=== PATIENT | female | born 1950 | race Caucasian/White ===

== ENCOUNTER 2023-09-16 13:46 | Inpatient (IN) | payer MEDICARE, OTHER, SELFPAY ==
[2023-09-16] VITALS (29 sets, daily range): BP systolic 129–192; BP diastolic 63–97; PULSE 28–95; RESP 15–20; TEMP 36.7; O2SAT 90–100; BMI 29.0
--- NOTE | ~2023-09-16 | XR_ITS ---
EXAMINATION: XR chest 1V portable DATE: 09/16/2023 17:16 INDICATION: Syncope. TECHNIQUE: A single frontal view of the chest was obtained. COMPARISON: CT abdomen and pelvis 12/10/2017 FINDINGS: There are chronic reticular opacities in the lower lung zones. There is no pneumonia, pleur al effusion, or pneumothorax. The heart size is normal. There is a moderate-sized hiatal hernia. IMPRESSION: 1. Mild chronic interstitial lung disease. 2. Moderate-sized hiatal hernia. Reviewed, dictated and finalized at location A. D DONOR UNIT ASSISTANT
--- NOTE | ~2023-09-16 | CT_ITS ---
EXAMINATION: CT cervical spine wo con DATE: 09/16/2023 16:43 INDICATION: Syncope. Fall. TECHNIQUE: Computed tomography (CT) of the cervical spine was performed without intravenous contrast. Automated exposure control and iterative reconstruction technique were employed. The dose-length pro duct was 443.11 mGy-cm. COMPARISON: None FINDINGS: There is a stent in the left carotid artery. There is 7 degrees levocurvature of cervical s pine. Vertebral body heights are normal. There is mildly decreased disc height at C4-C5, moderately d ecreased disc height at C5-C6, and severely decreased disc height at C6-C7. The following disc levels are specifically discussed: C2-C3: There is mild left uncovertebral joint osteoarthritis. There is mild bilateral facet joint ost eoarthritis. There is no neural foraminal stenosis. There is no central canal stenosis. C3-C4: There is mild bilateral uncovertebral joint osteoarthritis. There is mild left facet joint ost eoarthritis. There is no neural foraminal stenosis. There is no central canal stenosis. C4-C5: There is mild right uncovertebral joint osteoarthritis. There is mild bilateral facet joint os teoarthritis. There is no neural foraminal stenosis. There is no central canal stenosis. C5-C6: There is moderate right and severe left uncovertebral joint osteoarthritis. There is moderate right facet joint osteoarthritis. There is mild right and moderate left neural foraminal stenosis. Th ere is mild central canal stenosis. C6-C7: There is mild right and severe left uncovertebral joint osteoarthritis. There is severe right and moderate left facet joint osteoarthritis. There is mild left neural foraminal stenosis. There is mild central canal stenosis. C7-T1: There is no uncovertebral joint osteoarthritis. There is severe right and mild left facet join t osteoarthritis. There is no neural foraminal stenosis. There is no central canal stenosis. IMPRESSION: 1. No fracture. 2. Severe cervical spondylosis. Reviewed, dictated and finalized at location A. STANT FRONT OFFICE MANAGER
--- NOTE | ~2023-09-16 | CT_ITS ---
EXAMINATION: CT brain wo con DATE: 09/16/2023 16:43 INDICATION: Syncope and collapse. TECHNIQUE: Computed tomography (CT) of the head was performed without intravenous contrast. The mA wa s adjusted according to patient size. Iterative reconstruction technique was employed. The dose-lengt h product was 756.67 mGy-cm. COMPARISON: None FINDINGS: There are old infarcts in the left basal ganglia. There is an old infarct involving left pa rietal occipital region. There are scattered areas of low attenuation in the cerebral white matter. T here is no intracranial hemorrhage, acute infarction, or abnormal intracranial mass lesion. There is ex vacuo dilatation of left lateral ventricle. There are likely changes of ocular lens replacement josue rgeries. There is mild mucosal thickening in the paranasal sinuses. The mastoid air cells are normal. IMPRESSION: 1. 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 2. Extensive nonspecific cerebral white matter disease, which likely represents chronic small vessel ischemic disease. Reviewed, dictated and finalized at location A. ERY DIRECTOR IMPRESSION: 1. Old infarcts involving the left basal ganglia and left parietal occipital re gion. 2. Extensive nonspecific cerebral white matter disease, which likely represents chronic small vessel ischemic disease.
--- NOTE | ~2023-09-16 | XR_ITS ---
EXAMINATION: XR chest 1V portable DATE: 09/17/2023 14:48 INDICATION: Pacemaker insertion TECHNIQUE: frontal view of the chest was obtained. COMPARISON: Chest radiograph dated 09/16/2023 FINDINGS: Mild streaky left basilar atelectasis. No other airspace opacities, pulmonary edema, pleural effusion or pneumothorax. Heart size is normal. Lucent gas within a moderate-sized retrocardiac hiatal hernia . Dual lead pacemaker seen with leads projecting over the expected locations of the right atrium and right ventricle. IMPRESSION: 1. Mild left basilar atelectasis. No other acute cardiopulmonary disease. 2. Moderate-sized hiatal hernia. Reviewed, dictated and finalized at location B. PRESSER
--- NOTE | ~2023-09-16 | XR_ITS ---
EXAMINATION: XR chest 2V DATE: 09/18/2023 11:43 INDICATION: Pacer placement. TECHNIQUE: Frontal and lateral views of the chest were obtained. COMPARISON: Chest single view 09/17/2023 FINDINGS: There is mild atelectasis at the lung bases. No pleural effusion or pneumothorax. The heart size is normal. There is a left chest wall pacer with leads in the right atrium and right ventricle. There is mild chronic anterior wedging of multiple vertebral bodies. IMPRESSION: 1. Mild atelectasis at the lung bases. Reviewed, dictated and finalized at location A. ACE UTILITY OPERATOR
--- NOTE | 2023-09-16 13:50 | ECG_ITS ---
Measurements Intervals [place] Rate: 72 P: 32 AK: 171 QRS: -18 QRSD: 88 T: 32 QT: 383 QTc: 421 Interpretive Statements SINUS RHYTHM NONSPECIFIC ST-T WAVE ABNORMALITY- ANTEROLAT/HIGH LAT LEADS BASELINE ARTIFACT- I, III, AVR, V3-V4 BORDERLINE ECG COMPARED TO ECG 04/06/2019 10:02:01 [address] NOW PRESENT ST-T WAVE ABNORMALITY NOW PRESENT Electronically Signed On 09-17-2023 6:33:31 SCHOLARSHIP COUNSELOR by Hoang Workman D.O.
[2023-09-16 14:33] LABS: Glucose Point of Care 101 mg/dl (65-105)
[2023-09-16 14:35] LABS: Basophils Absolute Auto 0.1 K/mm3 (0.0-0.1); Basophils Percent Auto 0.6 % (0.2-1.2); Eosinophils Percent Auto 0.2 % (0-4.4); Hematocrit 47.6 % (37.0-47.0); Hemoglobin 15.1 g/dL (12.0-15.0); Immature Granulocyte Absolute 0.03 K/mm3 (0.00-0.031); Immature Granulocyte Percent A 0.4 % (0-0.5); Lymphocytes Absolute Auto 0.68 K/mm3 (0.9-3.2); Lymphocytes Percent Auto 8.3 % (18.3-44.2); Mean Corpuscular HGB Conc 31.7 g/dl (32-36); Mean Corpuscular Hemoglobin 27.8 pg (26-34); Mean Corpuscular Volume 87.7 fl (80-100); Monocytes Absolute Auto 0.2 K/mm3 (0.1-0.6); Monocytes Percent Auto 2.8 % (2.6-8.5); Neutrophils Absolute Auto 7.2 K/mm3 (1.3-6.7); Neutrophils Percent Auto 87.7 % (45.5-73.1); Platelet Count Result 195 k/mm3 (150-375); Red Blood Count 5.43 M/mm3 (4.2-5.4); Red Cell Distribution Width 14.5 % (11.5-14.5); White Blood Count 8.2 K/mm3 (4.5-10.0)
[2023-09-16 14:47] LABS: Alanine Aminotransferase 13 U/L (6-35); Albumin Level 4.3 g/dL (3.5-5.1); Alkaline Phosphatase 97 U/L (38-126); Anion Gap 4 mmol/L (8-16); Aspartate Amino Transferase 21 U/L (14-36); Bilirubin,Total 0.6 mg/dL (0.2-1.3); Blood Urea Nitrogen 17 mg/dL (7-17); Calcium 9.5 mg/dL (8.4-10.2); Carbon Dioxide 27 mmol/L (22-30); Chloride 107 mmol/L (98-107); Estimated CRCL calculation 52 ml/min; Estimated Glomerular Filt Rate > 60; Glucose 112 mg/dL (65-110); Potassium 4.5 mmol/L (3.4-5.0); Sodium 138 mmol/L (137-145)
--- NOTE | 2023-09-16 15:26 | ECG_ITS ---
Measurements Intervals [place] Rate: 63 P: 4 FL: 158 QRS: -27 QRSD: 86 T: 73 QT: 386 QTc: 396 Interpretive Statements SINUS RHYTHM LEFT VENTRICULAR HYPERTROPHY WITH ST-T CHANGE BORDERLINE R WAVE PROGRESSION, ANTERIOR LEADS INFERIOR INFARCT, AGE INDETERMINATE NONSPECIFIC T-WAVE ABNORMALITY- ANTEROLATERAL LEADS BASELINE ARTIFACT- I, III, AVR, AVL ABNORMAL ECG COMPARED TO ECG 04/06/2019 10:02:01 SINUS RHYTHM NOW PRESENT MYOCARDIAL INFARCT NOW PRESENT T-WAVE ABNORMALITY NOW PRESENT Electronically Signed On 09-17-2023 16:08:56 JEWEL HOLE CORNERER by Hoang Workman D.O.
--- NOTE | 2023-09-16 15:54 | ED.SYNCOPE ---
HPI - Syncope General Chief Complaint: Syncope <Neeru Kate PA-C - Last Filed: 09/18/23 09:15> Stated Complaint: syncope <Neeru Kate PA-C - Last Filed: 09/18/23 09:15> Time Seen by Provider: 09/16/23 15:19 <Neeru Kate PA-C - Last Filed: 09/18/23 09:15> History of Present Illness HPI narrative: 73-year-old female presents with her sister at bedside for syncopal event that occurred today. 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 She had a carotid endarterectomy approximately 1 year ago. Patient states today she was it getting into her car when she woke up on the ground. She denies prodromal symptoms but when prompted states she may have felt dizzy prior to the fall. States she believes she was out of consciousness for 1-2 minutes. The syncopal episode was unwittnessed. She denies history of seizures, bowel or bladder incontinence after the episode. She is unsure if she hit her head but states she does not have any pain in her head or neck. She denies injuries from the fall including back pain or extremity injury. Patient's sister at bedside states that the patient has reported she has felt more fatigued the past few days. The patient endorses she has felt sleepy as well. She denies chest pain or shortness of breath, palpitations, cough or congestion, abdominal pain, nausea vomiting, diarrhea, dysuria or hematuria, prior syncopal history , vision changes, focal numbness or weakness, melena or hematochezia. denies known cardiac history. Patient states she was taking Plavix approximately 1 year ago however discontinued it. Her sister states because she felt like taking it anymore. Patient is not anticoagulated. Patient's power of traffic law attorney is her daughter who is on her way to the hospital. Reports she is a full code. <Neeru Kate PA-C - Last Filed: 09/18/23 09:15> Related Data Home Medications: Home Medications Medication Instructions Recorded Confirmed VN-epbxvdivdgl-iznmdh ox-Zn ER 500 1 tablet PO DAILY 09/16/23 09/16/23 mcg-750 mg-1.5 mg-25 mg tablet,ER aspirin 81 mg capsule 81 mg PO DAILY 09/16/23 09/16/23 ezetimibe 10 mg PO DAILY 09/16/23 09/16/23 irbesartan 150 mg tablet 150 mg PO DAILY 09/16/23 09/16/23 methylsulfonylmethane 1,000 mg 1,000 mg PO DAILY 09/16/23 09/16/23 tablet <Neeru Kate PA-C - Last Filed: 09/18/23 09:15> Allergies/Adverse Reactions: Allergies Allergy/AdvReac Type Severity Reaction Status Date / Time No Known Allergies Allergy Verified 09/16/23 13:47 <DAYDAY Davis Last Filed: 09/18/23 09:15> Review of Systems Review of Systems: CONSTITUTIONAL: Denies fever, chills, or sweats. EYES: Denies visual changes, redness, or discharge. ENT: Denies rhinorrhea, congestion, sore throat, or otalgia. CARDIOVASCULAR: Denies chest pain, palpitations, or edema. RESPIRATORY: Denies cough or dyspnea. GASTROINTESTINAL: Denies abdominal pain, nausea, vomiting, or diarrhea. GENITOURINARY: Denies dysuria or hematuria. SKIN: Denies rash or itching. MUSCULOSKELETAL: Denies back pain, joint pain, or myalgia. NEUROLOGIC: see HPI PSYCHIATRIC: Denies anxiety or depression. <Neeru Kate PA-C - Last Filed: 09/18/23 09:15> [facility] Past Medical History Medical History: Medical History (Updated 09/18/23 @ 10:53 by Aníbal Blas MD) Anxiety CVA (cerebral vascular accident) 2016 History of breast cancer HTN (hypertension) Shingles 1989 Skin neoplasm Sleep apnea <DAYDAY Davis Last Filed: 09/18/23 09:15> Surgical History Surgical History: Surgical History History of cataract surgery History of hysterectomy <DAYDAY Davis Last Filed: 09/18/23 09:15> Family History Family History: Family History Mother Family
[2023-09-16] MEDS: SODIUM CHLORIDE 0.9% IV 1,000 ML 999 ML IV CONT ×2 (16:10→18:50)
[2023-09-16 16:45] LABS: Lactic Acid Reflex 1.6 mmol/L (0.7-2.0)
[2023-09-16 16:45] LABS: Creatine Kinase 32 U/L (30-135)
[2023-09-16 17:01] LABS: NT Pro B Type Natriuretic Pept 136 pg/mL (19.9-100); Troponin I < 0.012 ng/mL (0.000-0.034)
[2023-09-16 18:27] LABS: Appearance Urine Clear (Clear); Bacteria Urine None Seen /hpf; Bilirubin Urine Negative (Negative); Blood Urine Negative (Negative); Color Urine Yellow (Yellow); Glucose Urine UA Trace mg/dL (Negative); Ketones Urine 1+ mg/dL (Negative); Leukocyte Esterase Ur Trace LEU/UL (Negative); Nitrate Urine Negative (Negative); Non Pathogenic Casts 0-2; Protein Urine Negative (Negative); RBC Urine 0-2 /hpf (0-2); Specific Grav Ur 1.018 (1.001-1.035); Squamous Epithelial Cell Urine None seen /hpf (Few); Urobilinogen Urine 0.2 mg/dL (<2.0); WBC Urine 0-5 /hpf; pH Urine 6.5 (5.0-9.0)
[2023-09-16 18:35] LABS: Add Urine Microscopic? YES
--- NOTE | 2023-09-16 18:40 | PC.NURSE ---
PER VERBAL ORDERS FROM MARIO Rodriguez PA-C; CRASH CART BROUGHT TO ROOM, COMBO PADS APPLIED TO PT'S CHEST AND CRASH CART MONITOR IS ON.
[2023-09-16 19:16] LABS: Influenza A QL RT-PCR Negative (Negative); Influenza B QL RT-PCR Negative (Negative); RSV RNA, RT-PCR Negative (Negative); SARS-CoV-2 RNA PCR Negative (Negative)
[2023-09-16] MEDS: DOPamine 400 MG/D5W 250 ML 400 MG/250 ML BAG 13.69 MG IV CONT (19:25)
[2023-09-16 20:23] LABS: Troponin I < 0.012 ng/mL (0.000-0.034)
[2023-09-16] MEDS: ONDANSETRON INJ 4 MG/2 ML VIAL IV PUSH (20:30)
--- NOTE | 2023-09-16 21:39 | ADMGEN ---
This patient, Alberta Brown, was admitted to Intensive Care Unit-7. Patient/family oriented to hospital policies and general routines including ID bracelet, bed and alarms, visiting hours, pain management, procedures, bathroom and other care routines, personal items, smoking policy, room service/diet, and visiting hours. Information on how to activate the Rapid Response Team has been discussed. Patient/Family are encouraged to report perceived risks to care and to ask questions if they do not understand what they are told or what they should do.
[2023-09-16 23:30] LABS: Troponin I < 0.012 ng/mL (0.000-0.034)
[2023-09-17] VITALS (16 sets, daily range): BP systolic 118–196; BP diastolic 43–88; PULSE 57–81; RESP 13–27; TEMP 36.5–36.6; O2SAT 92–100
--- NOTE | 2023-09-17 | ECHO_ITS ---
Patient Info Name: Alberta Brown Age: 73 years : 1950 Gender: Female Ht: 64 in Wt: 160 lbs BSA: 1.83 m2 HR: 66 bpm BP: 155 / 57 mmHg Heart Rhythm: Bradycardia, Sinus Rhythm Technical Quality: Fair Exam Date: 09/17/2023 9:05 AM Exam Location: Echo Lab Patient Status: Inpatient Admit Date: 09/17/2023 Staff Ordering Physician: Liana Andujar APRN Pest Control Supervisor: Farrah Calderon RDCS Attending Provider: Heath Jones MD Referring Physician: Con OLIVEIRA; Exam Type: CA echo dop color flow w con Study Info Indications R55 - Syncope and collapse - Bradycardia Complete two-dimensional, color flow and Doppler transthoracic echocardiogram is performed with contrast to opacify the left ventricle and to improve the deliniation of the left ventricle endocardial borders. Contrast/Agitated Saline Contrast/Ag. Saline: Definity Amount: 2.00 ml Administered By: Farrah Calderon RDCS Existing IV Access: Yes IV Access Condition: patent with no signs of infiltration History/Risk Factors Hypertension: Yes Dyslipidemia: Yes Tobacco Use: Former Cerebrovascular Disease: Yes Summary 1. Definity contrast utilized to improve image quality. 2. Normal, nearly hyperdynamic left ventricular systolic function. 3. No valvular dysfunction. 4. Grade 1 diastolic noncompliance. Left Ventricular Outflow Tract Name Value Normal LVOT 2D LVOT Diameter 2.02 cm LVOT Doppler LVOT Peak Gradient 4 mmHg LVOT Mean Gradient 2 mmHg LVOT VTI 21.57 cm LVOT VTI/AV VTI Ratio 0.91 LVOT Stroke Volume 68.81 ml LVOT CO 4.02 l/min LVOT CI 2.20 L/min/m2 Pulmonic Valve Name Value Normal RVOT Doppler RVOT Peak Gradient 1 mmHg PV Doppler PV Peak Gradient 3 mmHg Mitral Valve Name Value Normal MV Doppler MV Decel [place] 212.30 cm/s2 MV PHT 0 s MV Area (PHT) 2.48 cm2 4.00-5.00 MV Diastolic Function MV E Peak Velocity 65.00 cm/s MV A Peak Velocity 59.18 cm/s MV E/A 1.10 MV Decel Time 0 s MV Annular TDI MV E/e' (Septal)
--- NOTE | 2023-09-17 01:04 | PM.IMHP ---
H&P: HPI History of Present Illness Date/Time: 09/17/23 01:04 Chief Complaint: Syncope Narrative: 73 y/o F presented here with a syncopal event with PMH of CVA, HTN, sleep apnea, shingles, breast cancer, and anxiety. Patient presents here from home for evaluation of syncopal event. Patient reports that she was walking to her car to go to lunch when she suddenly had a unwitnessed syncopal episode. Unknown duration of LOC, patient believes it may have been 1-2 minutes. Unknown if patient sustained a head strike, but denies headache or neck pain. Patient had no prodromal symptoms, i.e. shortness of breath, palpitations, chest pain, nausea, diaphoresis. After syncopal episode, patient did not report any confusion, diaphoresis, nausea, vomiting, diarrhea, palpitations, chest discomfort, or shortness of breath. No focal weakness, no change in sensation, no dysarthria. Patient denies any previous syncopal episodes. No recent illnesses. Per chart review, patient's sister (who was at the bedside in the ED) states the patient has been complaining of increased fatigue over the past few days. Patient has no known cardiac history. She is not currently on anticoagulation. Initial VS at presentation: 98.1 F, HR 69, RR 16, 177/81, 98% on RA. ED workup showed no leukocytosis, mildly elevated RBC/H&H, no significant electrolyte derangements, creatinine 0.8, glucose 112, lactic acid 1.6, troponin negative x3, BNP 136, UA not suggestive of UTI, and viral PCR negative for flu/RSV/COVID. Head CT she showed no acute bleeds, infarcts, or abnormal intracranial mass but did have chronic findings. C-spine CT showed severe cervical spondylosis. CXR showed mild/chronic ILD and a moderate-sized hiatal hernia. Review of Systems Review of Systems: All systems reviewed & are unremarkable except as noted in HPI and below PMFSH Past Medical History Medical History Anxiety CVA (cerebral vascular accident) 2015 History of breast cancer HTN (hypertension) Shingles 1988 Skin neoplasm Sleep apnea Surgical History Surgical History History of cataract surgery History of hysterectomy Family History Family History Mother Family history of malignant neoplasm of breast in first degree relative Family history of congestive heart failure Family history of chronic obstructive pulmonary disease Father Family history of aortic aneurysm Sibling Family history of malignant neoplasm of breast in first degree relative Social History Social History Smoking packs per day: 1 Smoking cigarettes per day: 20.0 Years smoked: 47 Smoking pack-years: 47.00 Smoking status: Former smoker Tobacco type: cigarettes Alcohol intake: current Drinks per week: 2 Substance use: never Do You Feel Safe in your Home?: Yes Lack of Transportation: No Lack of Food: Never True Current Housing: I Have Housing Concerned About Future Housing: No Difficulty Paying Gas/Electric Bills: No Difficulty Paying for Meds: No Currently Unemployed: No Education: Bachelor's Degree Difficulty w/ Childcare or Family Care: No Spiritual care concerns: No Meds Home Medications and Allergies Home Medications Medication Instructions Recorded Confirmed Type NM-tjjhmfaopgb-sqqfuu ox-Zn ER 500 1 tablet PO DAILY 09/16/23 09/16/23 History mcg-750 mg-1.5 mg-25 mg tablet,ER aspirin 81 mg capsule 81 mg PO DAILY 09/16/23 09/16/23 History ezetimibe 10 mg PO DAILY 09/16/23 09/16/23 History irbesartan 150 mg tablet 150 mg PO DAILY 09/16/23 09/16/23 History methylsulfonylmethane 1,000 mg 1,000 mg PO DAILY 09/16/23 09/16/23 History tablet Allergies Allergy/AdvReac Type Severity Reaction Status Date / Time No Known Allergies Allerg
[2023-09-17 03:55] LABS: Basophils Percent Auto 0.5 % (0.2-1.2); Eosinophils Percent Auto 0.1 % (0-4.4); Hematocrit 42.2 % (37.0-47.0); Hemoglobin 13.7 g/dL (12.0-15.0); Immature Granulocyte Absolute 0.02 K/mm3 (0.00-0.031); Immature Granulocyte Percent A 0.2 % (0-0.5); Lymphocytes Absolute Auto 0.98 K/mm3 (0.9-3.2); Lymphocytes Percent Auto 11.2 % (18.3-44.2); Mean Corpuscular HGB Conc 32.5 g/dl (32-36); Mean Corpuscular Hemoglobin 27.9 pg (26-34); Mean Corpuscular Volume 85.9 fl (80-100); Mean Platelet Volume 10.7 fl (7.4-10.4); Monocytes Absolute Auto 0.5 K/mm3 (0.1-0.6); Monocytes Percent Auto 5.5 % (2.6-8.5); Neutrophils Absolute Auto 7.2 K/mm3 (1.3-6.7); Neutrophils Percent Auto 82.5 % (45.5-73.1); Platelet Count Result 172 k/mm3 (150-375); Red Blood Count 4.91 M/mm3 (4.2-5.4); White Blood Count 8.8 K/mm3 (4.5-10.0)
[2023-09-17 04:17] LABS: Alanine Aminotransferase 13 U/L (6-35); Alkaline Phosphatase 91 U/L (38-126); Anion Gap 5 mmol/L (8-16); Aspartate Amino Transferase 22 U/L (14-36); Bilirubin,Total 0.6 mg/dL (0.2-1.3); Blood Urea Nitrogen 11 mg/dL (7-17); Carbon Dioxide 24 mmol/L (22-30); Chloride 110 mmol/L (98-107); Estimated CRCL calculation 60 ml/min; Estimated Glomerular Filt Rate > 60; Glucose 133 mg/dL (65-110); Magnesium 2.1 mg/dL (1.6-2.3); Phosphorus 3.8 mg/dL (2.5-4.5); Potassium 3.7 mmol/L (3.4-5.0); Sodium 139 mmol/L (137-145)
[2023-09-17 04:40] LABS: Thyroid Stimulating Hormone Reflex 0.297 uIU/mL (0.465-4.68)
--- NOTE | 2023-09-17 07:31 | PC.NURSE ---
At approximately 0606 the alarms in the patient's room began to sound due to the patient's HR dropping down into the 30s. I promptly rushed into the room to check on the patient and began to check her for responsiveness. The patient was initially minimally responsive but then opened her eyes and began to focus on me. During the process of checking on the patient, she had a 13 second long period of asystole, and the now 3 RNs in the room prepared to begin ACLS. The patient thankfully came around and resumed a normal HR after the period of asystole, while being keenly responsive through the rest of the episode. Her HR then dropped into 40s but did not go lower than that at this time. This RN then called the on-call irrigator head and appraised her of the situation. (See orders) The patient was educated on what to expect moving forward and her family was called to be given an update. The patient's daughter Stefania is currently en route to the hospital and Dr. Mcallister is in to see the patient. The plan is for pacemaker placement later today.
--- NOTE | 2023-09-17 07:38 | PM.CNCAR ---
Assessment and Plan Assessment and plan (1) Symptomatic bradycardia: Code(s): R00.1 - Bradycardia, unspecified Status: Acute Plan This is a very pleasant 73-year-old lady with hypertension but no previous cardiovascular problems. She presents with syncope and obvious evidence of sick sinus syndrome. For this a permanent dual-chamber pacemaker should be implanted. The procedure the details the risks were explained to her in the room this morning and she is willing to proceed. We will assemble the necessary staff/pacemaker healthcare representative and proceed today with her device implantation. Thank you for this consultation. Diony Mcallister MD [facility] History of Present Illness History of Present Illness Consult date/time: 09/17/23 07:38 Reason For Visit: Symptomatic Bradycardia,Syncope & Collapse Narrative: This is a very pleasant 73-year-old lady I am seeing at the request of the hospitalist because of syncope and evidence of sick sinus syndrome. She does not have any cardiac problems prior to this that she can recall. She is a lady who lives alone and was yesterday going out into her garage to get her car to run some errands. She obviously experienced an abrupt syncopal episode because all she can recall is waking up on the floor for garage. She did not sustain any serious injuries but a family member did bring her to the emergency room for evaluation. In the emergency department her electrocardiogram looked essentially unremarkable as far as rhythm and conduction problems etc.. It was noticed on a couple of occasions however she abruptly became significant Wes bradycardic with a junctional rhythm heart rate in the 30s. She became symptomatic Deisy hypotensive when these episodes would occur. She was placed on some dopamine and admitted to the ICU. Earlier this morning while in ICU room 7. She had a 12nd asystolic pause with evidence of sinus arrest and no discernible P waves. She did lose consciousness when this episode occurred. In this setting I am seeing her in consultation. Her current rhythm is sinus in the mid 60s with normal AR interval and normal conduction. Twelve lead electrocardiogram otherwise looks unremarkable her chest x-ray is essentially unremarkable. She says she has hypertension for about 8 or 10 years and takes here but saw her 10 she also has dyslipidemia for which she takes Zetia. She has no medical allergies and again no previous cardiac history she is a former smoker she quit about 8-10 years ago and does not drink alcohol excessively. Review of Systems Constitutional: Constitutional: Reports no additional constitutional complaints Eyes: Eyes: Reports no additional eye complaints ENT: Reports system reviewed and no additional complaints, except as documented Cardiovascular: Cardiovascular: Reports as per HPI Respiratory: Respiratory: Reports no additional respiratory complaints Gastrointestinal: Gastrointestinal: Reports no additional gastrointestinal complaints Musculoskeletal: Musculoskeletal: Reports back pain Integumentary/Breasts: Skin/Breast: Reports system reviewed and no additional complaints, except as docu Neurologic: Reports as per HPI Endocrine: Endocrine: Reports no additional endocrine complaints Hematologic/Lymphatic: Hematologic/Lymphatic: Reports no additional hematologic/lymphatic complaints Allergic/Immunologic: Allergic/Immunologic: Reports no additional allergic/immunologic complaints [facility] Past Medical History Medical History Anxiety CVA (cerebral vascular accident) 2015 History of breast cancer HTN (hypertension) [place] 1988 Skin neoplasm Sleep apnea Surgical History Surgical History History of cataract surgery History of hysterectomy Family History Family History Mother Fam
--- NOTE | 2023-09-17 09:02 | WPDCNINT ---
Assessment and Plan Assessment and plan (1) Sick sinus syndrome: Code(s): I49.5 - Sick sinus syndrome Status: Acute Assessment and Plan: Patient appears to have sick sinus syndrome with sinus bradycardia and recurrent prolonged blocks Patient is currently on dopamine infusion which will be continued. She will be continue to monitor in ICU Her electrolytes are acceptable and she is not on any beta-princess or calcium channel princess Cardiology has been consulted and patient is scheduled to get a pacemaker today Continue aspirin (2) Syncope and collapse: Code(s): R55 - Syncope and collapse Status: Acute Assessment and Plan: Secondary to sick sinus syndrome. No recurrence once coming to ICU (3) CVA (cerebral vascular accident): Code(s): I63.9 - Cerebral infarction, unspecified Status: Acute Assessment and Plan: Continue aspirin and Zetia (4) HTN (hypertension): Code(s): I10 - Essential (primary) hypertension Status: Acute Assessment and Plan: Continue irbesartan Plan DVT prophylaxis -SCDs Nutrition - npo Code Status - Full Code Total Critical Care Time - 30 minutes Due to a high probability of clinically significant, life threatening deterioration, the patient required my highest level of preparedness to intervene emergently and I personally spent this critical care time directly and personally managing the patient. This critical care time included obtaining a history; examining the patient; pulse oximetry; ordering and review of studies; arranging urgent treatment with development of a management plan; evaluation of patient's response to treatment; frequent reassessment; and discussions with other providers. It was exclusive of separately billable procedures and treating other patients and teaching time. Please see Assessment and Plan section and the rest of the note for further information on patient assessment and treatment Floor Mechanic Consult Note Consult date: 09/17/23 Reason for consult: Bradycardia HPI: Alberta Brown is a 73 year old female presented to ER with a syncopal event with PMH of CVA, HTN, sleep apnea, shingles, breast cancer, and anxiety. Patient reported that she was walking to her car to go to lunch in a garage when she suddenly had a unwitnessed syncopal episode.? Unknown duration of LOC but patient believes it may have been 1-2 minutes.? Patient does not believe she hit her head and denies any headache or neck pain.? Patient had no prodromal symptoms, i.e. shortness of breath, palpitations, chest pain, nausea, diaphoresis.? After syncopal episode, patient did not report any confusion, diaphoresis, nausea, vomiting, diarrhea, palpitations, chest discomfort, or shortness of breath.? No focal weakness, no change in sensation, no dysarthria.? Patient denies any previous syncopal episodes.? She denies any recent symptoms or illnesses.? Patient denies fever, chest pain, shortness of breath, cough, nausea vomiting, abdominal pain,, diarrhea, headache or constipation. No dysuria hematuria melena hematochezia. All other systems were reviewed and were negative. Patient is not on any beta-princess or calcium channel princess at home ED workup showed no leukocytosis, mildly elevated RBC/H&H, no significant electrolyte derangements, creatinine 0.8, glucose 112, lactic acid 1.6, troponin negative x3, BNP 136, UA not suggestive of UTI, and viral PCR negative for flu/RSV/COVID.? Head CT she showed no acute bleeds, infarcts, or abnormal intracranial mass but did have chronic findings.? C-spine CT showed severe cervical spondylosis.? CXR showed mild/chronic ILD and a moderate-sized hiatal hernia EKG showed sick sinus syndrome with sinus bradycardia and pauses. Patient was admitted to ICU and started on dopamine infusion after consultation with Cardiology. Cardiology has evaluated the patient and plan is to place pacemaker today Review of Systems Review of Systems
[2023-09-17] MEDS: PERFLUTREN LIPID MICROSPHERES 1.5 ML VIAL DILUTED TO 10 ML TOTAL VOLUME IV PUSH (09:36)
--- NOTE | 2023-09-17 09:36 | WPDMODSED ---
Moderate Sedation Note-Pt Data Patient Data Diagnosis: sick sinus syndrome Present Complaint: syncope Procedure to be performed/Plan: implantation of permanent pacemaker Allergies Allergy/AdvReac Type Severity Reaction Status Date / Time No Known Allergies Allergy Verified 09/16/23 13:47 Home Medications Medication Instructions Recorded Confirmed Type HZ-fpspxizwhjr-ggynya ox-Zn ER 500 1 tablet PO DAILY 09/16/23 09/16/23 History mcg-750 mg-1.5 mg-25 mg tablet,ER aspirin 81 mg capsule 81 mg PO DAILY 09/16/23 09/16/23 History ezetimibe 10 mg PO DAILY 09/16/23 09/16/23 History irbesartan 150 mg tablet 150 mg PO DAILY 09/16/23 09/16/23 History methylsulfonylmethane 1,000 mg 1,000 mg PO DAILY 09/16/23 09/16/23 History tablet Current Medications: Active Medications Aspirin (Aspirin 81 Mg Enteric Tablet) 81 mg PO DAILY TEDDY Stop: 10/17/23 08:59 Atropine Sulfate (Atropine Sulfate 1 Mg/10 Ml Syringe) 1 mg IV PUSH ONCE PRN PRN Reason: Bradycardia Ezetimibe (Ezetimibe 10 Mg Tablet) 10 mg PO QAM [facility] Dopamine HCl/Dextrose (Dopamine 400 Mg/D5w 250 Ml) 400 mg in 250 mls @ 13.688 mls/hr IV CONT .[id number] TEDDY Last Infusion: 09/17/23 03:00 Dose: 5 mcg/kg/min, 13.69 mls/hr Irbesartan (Irbesartan 150 Mg Tablet) 150 mg PO DAILY TEDDY Pantoprazole Sodium (Pantoprazole Sodium Iv 40 Mg Vial) 40 mg IV PUSH QAM [facility] Perflutren Lipid Microsphere (Perflutren Lipid Microspheres 1.5 Ml Vial Diluted To 10 Ml Total Volume) 0 ml IV PUSH ONCE PRN; Protocol PRN Reason: adequate visualization Stop: 09/19/23 20:50 Sedation/Anesthesia: No previous sedation/anesthesia problems (including family history). [facility] Past Medical History Medical History (Updated 09/17/23 @ 09:09 by Ede Mcintyre MD) Anxiety CVA (cerebral vascular accident) 2015 History of breast cancer HTN (hypertension) Shingles 1988 Skin neoplasm Sleep apnea Surgical History Surgical History History of cataract surgery History of hysterectomy Family History Family History Mother Family history of malignant neoplasm of breast in first degree relative Family history of congestive heart failure Family history of chronic obstructive pulmonary disease Father Family history of aortic aneurysm Sibling Family history of malignant neoplasm of breast in first degree relative Social History Social History Smoking packs per day: 1 Smoking cigarettes per day: 20.0 Years smoked: 47 Smoking pack-years: 47.00 Smoking status: Former smoker Tobacco type: cigarettes Alcohol intake: current Drinks per week: 2 Substance use: never Do You Feel Safe in your Home?: Yes Lack of Transportation: No Lack of Food: Never True Current Housing: I Have Housing Concerned About Future Housing: No Difficulty Paying Gas/Electric Bills: No Difficulty Paying for Meds: No Currently Unemployed: No Education: Bachelor's Degree Difficulty w/ Childcare or Family Care: No Spiritual care concerns: No Mod Sed Physical Exam Physical Exam Pre Procedural Exam: Normal: Appearance, Neck, Throat, Airway, Lungs, Heart Size, Heart Rate, Heart Rhythm, Neuro Exam and Extremities Hours since solid foods: 12 Hours since liquid intake: 12 Mallampati Classification: class II Internal Medicine - PN: Obj Da Vital Signs Vital Signs: Vital Signs - 24 hr 09/16/23 14:02 09/16/23 14:46 09/16/23 15:40 Temperature 36.7 C Pulse Rate 69 63 61 Respiratory Rate 16 15 18 Blood Pressure 177/81 H Pulse Oximetry 98 91 100 Oxygen Delivery Room Air Oxygen Flow Rate 09/16/23 15:47 09/16/23 16:02 09/16/23 16:15 Temperature Pulse Rate 84 72 64 Respiratory Rate 16 19 20 Blood Pressure Pulse Oximetry 100 Oxygen Delivery Oxygen Flow Rate 09/16/23 16:17 09/16/23 16:30
--- NOTE | 2023-09-17 10:21 | PC.NURSE ---
Patient taken to solder making laborer for pacemaker placement.
--- NOTE | 2023-09-17 11:28 | ECG_ITS ---
Measurements Intervals [place] Rate: 72 P: 29 MT: 177 QRS: -15 QRSD: 86 T: 161 QT: 365 QTc: 401 Interpretive Statements SINUS RHYTHM CONSIDER ANTERIOR INFARCT, AGE INDETERMINATE BORDERLINE ST-T WAVE ABNORMALITY- DIFFUSE LEADS BASELINE ARTIFACT- I, II, AVR, AVL,A VF, V1 ABNORMAL ECG COMPARED TO ECG 09/16/2023 19:08:32 MYOCARDIAL INFARCT FINDING NOW PRESENT Electronically Signed On 09-17-2023 13:46:01 AGRICULTURAL AGENT by Hoang Workman D.O.
--- NOTE | 2023-09-17 11:30 | WPDCARDPROC ---
Cardiac Cath Procedure Note Date of procedure:: 09/17/23 Performing physician:: Diony Mcallister MD Indication:: syncope with sick sinus syndrome Brief clinical history:: this is a 73-year-old lady without previous cardiac history admitted yesterday following a syncopal event that occurred at her home. She has been found to have significant sick sinus syndrome with long asystolic pauses on telemetry and for this reason pacemaker implantation has been recommended. Procedure Procedure performed:: Implantation of permanent dual-chamber pacemaker Sedation/Medication given:: fentanyl 75 mg Versed 2 mg case start time 10:42 a.m. case end time 11:23 a.m. sedation provided by Gayatri Mayorga RN, trained observer Access site:: left subclavian vein Estimated blood loss:: minimal Procedure note:: patient was brought to the cardiac catheterization lab in the postabsorptive state with a left anterior chest wall was prepped and draped in the normal sterile fashion. Anesthesia was provided with 1% lidocaine inferior to the clavicle. An incision was then made about 1 in below the clavicle from the midclavicular line to the deltopectoral groove. Sharp and blunt dissection was used to separate the subcutaneous tissue and identify the fascial plane and electrocautery was used to provide cutaneous hemostasis. Following this a blunt dissection was used along the prepectoral fascia to create a pacemaker pocket inferior to the incision. This was then packed with antibiotic 4 x 4. After this attention was turned venous access. The subclavian vein was punctured and using the modified Seldinger technique and 2 6 Georgian stay safe sheaths were placed after guidewires were advanced into the venous circulation to the level of the right atrium. The Safe sheath were then used to advance the pacemaker leads detailed below into the venous circulation there were advanced into the right atrial position. Attention was then turned to the ventricular lead position. The stylet was removed and a 3 cc syringe was used to form a J stylet allowing the to steer the lead through the right ventricle out to the pulmonary artery position. A straight stylet was placed into the lead was then withdrawn and placed into the right ventricular apex. Very good R-waves were sensed and current of injury and the fixation screw was then deployed. Using the analyzer appropriate pacing and sensing performance was demonstrated and a 10 pole stimulus failed to show any evidence of extracardiac stimulation. Attention was then turned to position the atrial lead. In a similar fashion the lead was withdrawn and a preformed atrial J was placed into the lead was maneuvered into the atrial appendage position. The fixation screw was deployed upon withdrawal of the stylet the lead was fixed into position. The analyzer was then used to confirm good lead performance appropriate pacing and sensing was again demonstrated and again a 10 volts stimulation showed no evidence of extracardiac stimulation. The leads were then sutured to the base of the pocket using 2-0 silk and the attached suture sleeves. The retained sponge was removed the pocket the pocket was then irrigated with antibiotic infused saline. The pacemaker device detailed below was then connected to the leads using the torque wrench and the entire assembly was placed into the newly created pocket. The pocket was closed in layers using 3-0 Vicryl in an interrupted fashion for the subcutaneous tissue and 4-0 Vicryl in a running subcuticular fashion for the skin. The wound was dressed with an Aquacel dressing. She was taken back to her room in stable condition procedure was tolerated and uncomplicated. Postop EKG chest x-ray and antibiotics were ordered. Findings:: The patient received a permanent Biotronik dual-chamber pacing system model Amvia Edge [id number]. serial number [id number]. Device is programmed in the DDDR CLS mode lower rate
--- NOTE | 2023-09-17 11:47 | PC.NURSE ---
Patient back from dock or pier laborer.
[2023-09-17] MEDS: PANTOPRAZOLE SODIUM IV 40 MG VIAL IV PUSH (12:01)
[2023-09-17] MEDS: EZETIMIBE 10 MG TABLET PO (12:01)
[2023-09-17] MEDS: IRBESARTAN 150 MG TABLET PO (12:01)
[2023-09-17] MEDS: ASPIRIN 81 MG ENTERIC TABLET PO (12:01)
[2023-09-17 12:05] LABS: Total Triiodothyronine (T3) 0.98 NG/ML (0.97-1.69)
--- NOTE | 2023-09-17 12:19 | IVDEFINITY ---
Prior to administration of IV Definity the patient was educated on the risks and benefits of the imaging enhancing agent including potential adverse side effects. The patient verbalized understanding. Allergies were verified. No exclusion criteria were identified and at least one of the following inclusion criteria were met: 1) physician request, 2) patient technically difficult to image (per the [place] [employer]chocardi[employer] guidelines of two or more segments not discernable within the apical view), or 3) questionable left ventricular function. ?
[2023-09-17] MEDS: SODIUM CHLORIDE 0.9% IV 1,000 ML 50 ML IV CONT (13:08)
[2023-09-17] MEDS: HYDROcodone/acetaminophen (*CRX) 5-325 MG TABLET 1 TAB PO (16:48)
[2023-09-17] MEDS: ceFAZolin 1 GM/NS 50 ML 1 GM/50 ML BAG IVPB (18:08)
--- NOTE | 2023-09-17 19:01 | PM.IMPN ---
Progress Note: A&P Assessment and Plan (1) CVA (cerebral vascular accident): Code(s): I63.9 - Cerebral infarction, unspecified Status: Acute (2) Sick sinus syndrome: Code(s): I49.5 - Sick sinus syndrome Status: Acute (3) HTN (hypertension): Code(s): I10 - Essential (primary) hypertension Status: Acute (4) Syncope and collapse: Code(s): R55 - Syncope and collapse Status: Acute (5) Symptomatic bradycardia: Code(s): R00.1 - Bradycardia, unspecified Status: Acute Plan Admit patient to ICU under full inpatient status Patient received IV atropine and dopamine drip in the ICU Heart rate is now stable Patient undergoing cardiac catheterization with the permanent pacemaker placement Follow-up closely as per fiber locking supervisor and Cardiology Will downgrade patient to IMU once she is stable from cardiac standpoint ? Patient seen and examined at bedside during my morning rounds ? Collaborated with patient's nurse at the bedside in detail and addressed all concerns ? Labs, electrolytes, radiology, investigations and test results reviewed ? Consult/Nursing/Ancilliary notes on the chart reviewed and appreciated ? Spoke with patient/family at the bedside and answered all the questions that they had Repeat labs in a.m. Electrolyte replacement as per protocol. Patient will be monitored very closely on the floor. Further recommendations as per the hospital course. Time Spent With Patient Time with patient: 15 - 25 minutes Subjective Date/time seen: 09/17/23 19:01 Interval history: Patient seen and evaluated in the ICU during my morning rounds. She was on her way to get her pacemaker done Review of Systems Review of Systems: 14 systems were reviewed with pertinent positives and negatives per HPI. Except as documented in the HPI/progress notes, all other systems were reviewed and are negative. All systems reviewed & are unremarkable except as noted in HPI and below Exam Narrative: PHYSICAL EXAMINATION: Vital signs: Please see the chart General physical exam: Pleasant and, lying in bed, on her way to cardiac tag and label cutter, appears tired and fatigued Head/eyes: Atraumatic, EOMI, PERRLA ENT: Moist mucous membranes, nasal passages clear Neck: Supple, full range of motion, trachea midline CVS: S1 + S2, + sinus bradycardia, no murmurs Respiratory: Bilaterally fair air entry in both lung dinero, mild B/L crackles, symmetric chest expansion, no distress Abdomen: Soft, non-tender, bowel sounds +ve, no organomegaly Extremities: No clubbing, no cyanosis, no edema, no calf tenderness Musculoskeletal: Moves all, adequate range of motion, no muscle spasms Skin: Warm, dry, no jaundice, no cyanosis Neurological: Awake, alert, oriented x 3, cranial nerves II-XII intact, no focal neurological deficits Psychiatric: Normal mood, non suicidal Objective Data Vital Signs Vital Signs: Vital Signs - 24 hr 09/16/23 19:25 09/16/23 19:02 09/16/23 19:15 Temperature Pulse Rate 89 77 77 Respiratory Rate 18 18 Blood Pressure 192/97 H 173/76 H Pulse Oximetry 96 97 Oxygen Delivery Oxygen Flow Rate 09/16/23 19:17 09/16/23 19:45 09/16/23 19:47 Temperature Pulse Rate 77 73 72 Respiratory Rate 15 18 20 Blood Pressure 192/85 H 160/65 H Pulse Oximetry 97 94 91 Oxygen Delivery Oxygen Flow Rate 09/16/23 20:02 09/16/23 20:10 09/16/23 20:26 Temperature Pulse Rate 75 73 77 Respiratory Rate 19 16 19 Blood Pressure 161/63 H Pulse Oximetry 94 92 Oxygen Delivery Oxygen Flow Rate 09/16/23 20:47 09/16/23 22:00 09/16/23 22:00 Temperature Pulse Rate 78 76 86 Respiratory Rate 17 16 Blood Pressure 129/70 144/71 H Pulse Oximetry 97 Oxygen Delivery Oxygen Flow Rate 09/17/23 00:00 09/16/23 23:54 09/17/23 00:00 Temperature Pulse Rate 68 28 L Respiratory Rate 23 H Blood Pressure 147/59 H Pulse Oximetry 97 97 Oxygen Deliv
[2023-09-18] VITALS (12 sets, daily range): BP systolic 115–195; BP diastolic 60–100; PULSE 64–94; RESP 16–27; TEMP 36.3–36.6; O2SAT 92–97
[2023-09-18] MEDS: ceFAZolin 1 GM/NS 50 ML 1 GM/50 ML BAG IVPB (02:39)
[2023-09-18] MEDS: amLODIPine BESYLATE 5 MG TABLET PO (03:39)
[2023-09-18 04:01] LABS: Basophils Percent Auto 0.5 % (0.2-1.2); Eosinophils Absolute Auto 0.2 K/mm3 (0-0.3); Eosinophils Percent Auto 2.7 % (0-4.4); Hematocrit 41.2 % (37.0-47.0); Hemoglobin 13.1 g/dL (12.0-15.0); Immature Granulocyte Absolute 0.02 K/mm3 (0.00-0.031); Immature Granulocyte Percent A 0.3 % (0-0.5); Lymphocytes Absolute Auto 1.14 K/mm3 (0.9-3.2); Lymphocytes Percent Auto 15.2 % (18.3-44.2); Mean Corpuscular HGB Conc 31.8 g/dl (32-36); Mean Corpuscular Hemoglobin 27.5 pg (26-34); Mean Corpuscular Volume 86.4 fl (80-100); Mean Platelet Volume 10.5 fl (7.4-10.4); Monocytes Absolute Auto 0.6 K/mm3 (0.1-0.6); Monocytes Percent Auto 7.5 % (2.6-8.5); Neutrophils Absolute Auto 5.5 K/mm3 (1.3-6.7); Neutrophils Percent Auto 73.8 % (45.5-73.1); Platelet Count Result 152 k/mm3 (150-375); Red Blood Count 4.77 M/mm3 (4.2-5.4); Red Cell Distribution Width 14.2 % (11.5-14.5); White Blood Count 7.5 K/mm3 (4.5-10.0)
[2023-09-18 04:12] LABS: Anion Gap 6 mmol/L (8-16); Blood Urea Nitrogen 12 mg/dL (7-17); Calcium 8.7 mg/dL (8.4-10.2); Carbon Dioxide 23 mmol/L (22-30); Chloride 110 mmol/L (98-107); Estimated CRCL calculation 60 ml/min; Estimated Glomerular Filt Rate > 60; Glucose 116 mg/dL (65-110); Potassium 3.4 mmol/L (3.4-5.0); Sodium 139 mmol/L (137-145)
[2023-09-18] MEDS: hydrALAZINE HCL 20 MG/ML VIAL IV PUSH (05:34)
[2023-09-18] MEDS: HYDROcodone/acetaminophen (*CRX) 5-325 MG TABLET 1 TAB PO (06:46)
--- NOTE | 2023-09-18 07:55 | WPDINTPN ---
Progress Note: A&P Assessment and Plan (1) Sick sinus syndrome: Code(s): I49.5 - Sick sinus syndrome Status: Acute Assessment and Plan: Patient appears to have sick sinus syndrome with sinus bradycardia and recurrent long pauses, initially was placed on dopamine and admitted to the ICU for closer monitoring. -09/16: Status post implantation of permanent dual-chamber pacemaker -Off dopamine -currently in sinus rhythm with occasional paced rhythm -cardiology is following the patient closely Continue aspirin (2) Syncope and collapse: Code(s): R55 - Syncope and collapse Status: Acute Assessment and Plan: Secondary to sick sinus syndrome. Status post pacemaker (3) CVA (cerebral vascular accident): Code(s): I63.9 - Cerebral infarction, unspecified Status: Acute Assessment and Plan: Continue aspirin and Zetia (4) HTN (hypertension): Code(s): I10 - Essential (primary) hypertension Status: Acute Assessment and Plan: Patient was hypertensive overnight requiring p.r.n. hydralazine - Continue irbesartan, amlodipine was added overnight -patient states that her blood pressures have been labile at home with highs in the 190s. Plan DVT prophylaxis -SCDs Nutrition -heart healthy diet Code Status - Full Code Total Critical Care Time - 31 minutes Patient may transfer out of the ICU if okay with Cardiology Due to a high probability of clinically significant, life threatening deterioration, the patient required my highest level of preparedness to intervene emergently and I personally spent this critical care time directly and personally managing the patient. This critical care time included obtaining a history; examining the patient; pulse oximetry; ordering and review of studies; arranging urgent treatment with development of a management plan; evaluation of patient's response to treatment; frequent reassessment; and discussions with other providers. It was exclusive of separately billable procedures and treating other patients and teaching time. Please see Assessment and Plan section and the rest of the note for further information on patient assessment and treatment Subjective Date/time seen: 09/18/23 07:55 Interval history: Reason for consult: Symptomatic bradycardia, syncope status with sick sinus syndrome with long pauses on telemetry 09/16: Status post implantation of a dual chamber pacemaker 09/18/2023: Patient seen and examined the ICU, is awake, alert, oriented x3, patient is nonfocal. Patient was hypertensive overnight, was given hydralazine with improvement in blood pressures. Denies any chest pain shortness of breath, abdominal pain, nausea, vomiting. Mostly in sinus rhythm with a mid and paced beats. Urine output has been adequate, patient is afebrile, hemodynamically stable Review of Systems Review of Systems: All systems reviewed & are unremarkable except as noted in HPI and below (HPI) Exam Narrative: General: Pt is alert awake and in NAD HEENT: pupils are equal and reactive, sclerae is clear Lungs/Chest: Trachea central Clear BS B/L, No crackles or wheezing. Cardiac: Sinus rhythm with occasional paced rhythm. Normal S1 S2. No murmurs Circulation: Pedal pulses are intact and symmetrical. Abdomen: Normal bowel sounds.. Soft. NT. ND. Extremities: No clubbing, cyanosis or edema. Warm : Carrillo in place Neurologic: Patient is awake, alert, oriented x3, nonfocal, able to answer questions appropriately and follows simple commands in all extremities Skin: Pacemaker site with no evidence of hematoma Objective Data Vital Signs Vital Signs: Vital Signs - 24 hr 09/17/23 08:00 09/17/23 08:00 09/17/23 08:00 Temperature 98 F Pulse Rate 64 64 64 Respiratory Rate 15 15 Blood Pressure 121/73 Pulse Oximetry 97 97 Oxygen Delivery Room Air Oxygen Flow Rate 09/17/23 10:00 09/17/23 10:00 09/17/23 11:28 Temperature 98 F
[2023-09-18] MEDS: POTASSIUM CHLORIDE 20 MEQ ER TABLET 40 MEQ PO (08:47)
[2023-09-18] MEDS: EZETIMIBE 10 MG TABLET PO (08:47)
[2023-09-18] MEDS: IRBESARTAN 150 MG TABLET PO (08:48)
[2023-09-18] MEDS: ASPIRIN 81 MG ENTERIC TABLET PO (08:48)
[2023-09-18] MEDS: PANTOPRAZOLE SODIUM IV 40 MG VIAL IV PUSH (08:54)
--- NOTE | 2023-09-18 10:51 | PM.PNCARD ---
Progress Note: A&P Assessment and Plan (1) Symptomatic bradycardia: Code(s): R00.1 - Bradycardia, unspecified Status: Acute Assessment and Plan: Status post dual chamber pacer. PA and lateral cXR today. If unremarkable and if device interrogation shows normal function device, and she be discharged home later today with standard follow-up in a pacer check/wound check next week (2) HTN (hypertension): Code(s): I10 - Essential (primary) hypertension Status: Acute Assessment and Plan: Continue home med (3) Hypokalemia: Code(s): E87.6 - Hypokalemia Status: Acute Assessment and Plan: KCL 40 mEq p.o. x1 Subjective Date/time seen: 09/18/23 10:51 Interval history: Reason for consult: Symptomatic bradycardia, syncope status with sick sinus syndrome with long pauses on telemetry 09/16: Status post implantation of a dual chamber pacemaker Date of service 09/18/2023: Status post ppm yesterday. Function normally. No chest pain, shortness of breath. Anxious to go Review of Systems Constitutional: Constitutional: Reports no additional constitutional complaints Eyes: Eyes: Reports no additional eye complaints ENT: Reports system reviewed and no additional complaints, except as documented Cardiovascular: Cardiovascular: Reports as per HPI Respiratory: Respiratory: Reports no additional respiratory complaints Gastrointestinal: Gastrointestinal: Reports no additional gastrointestinal complaints Musculoskeletal: Musculoskeletal: Reports back pain Integumentary/Breasts: Skin/Breast: Reports system reviewed and no additional complaints, except as docu Neurologic: Reports as per HPI Endocrine: Endocrine: Reports no additional endocrine complaints Hematologic/Lymphatic: Hematologic/Lymphatic: Reports no additional hematologic/lymphatic complaints Allergic/Immunologic: Allergic/Immunologic: Reports no additional allergic/immunologic complaints Exam Const: General: comfortable and no acute distress Other: Pleasant well-developed well-nourished white female no apparent distress appears her stated age HENMT: Mouth: Yes moist mucous membranes Eyes: Sclera: sclerae normal Neck: Neck: supple and no JVD Other: Normal carotid pulses no bruits carotid endarterectomy scar noted Resp: Effort & Inspection: normal respiratory effort Auscultation: clear to auscultation bilaterally Cardio: Rate: regular rate Rhythm: regular rhythm Other: PMI is of normal location and activity no gallop no murmur GI: Auscultation: normal bowel sounds Skin: General skin exam: normal color Other: Ppm site CDI Neuro: Speech: normal speech Other: Alert and oriented x3 Extrem: General: normal to inspection Psych: Affect: normal affect Objective Data Vital Signs Vital Signs: Vital Signs - 24 hr 09/17/23 11:28 09/17/23 12:00 09/17/23 12:00 Temperature 36.6 C Pulse Rate 68 75 75 Respiratory Rate 19 19 Blood Pressure 153/83 H Pulse Oximetry 98 98 Oxygen Delivery Room Air Oxygen Flow Rate 09/17/23 14:00 09/17/23 14:00 09/17/23 16:00 Temperature Pulse Rate 81 77 72 Respiratory Rate 27 H Blood Pressure 122/85 Pulse Oximetry Oxygen Delivery Oxygen Flow Rate 09/17/23 16:00 09/17/23 16:39 09/17/23 18:00 Temperature 36.6 C Pulse Rate 72 75 Respiratory Rate 13 Blood Pressure 159/88 H Pulse Oximetry 99 95 Oxygen Delivery Room Air Oxygen Flow Rate 09/17/23 18:00 09/17/23 20:00 09/17/23 20:00 Temperature Pulse Rate 75 68 Respiratory Rate 16 16 Blood Pressure 135/67 147/79 H Pulse Oximetry 95 Oxygen Delivery Room Air Oxygen Flow Rate 09/17/23 22:00 09/18/23 00:00 09/18/23 00:00 Temperature 36.5 C 36.6 C Pulse Rate 70 70 Respiratory Rate 17 16 Blood Pressure 196/80 H 175/75 H Pulse Oximetry 92 92 Oxygen Delivery Room Air Oxygen Flow Rate 09/17/23
[2023-09-18] MEDS: LEVOTHYROXINE SODIUM 25 MCG TABLET PO (11:01)
--- NOTE | 2023-09-18 15:09 | PM.DS ---
DS: Admitting Diagnosis Discharge Date 09/18/2023: Admitting Diagnosis (1) Syncope and collapse: ?Code(s): R55 - Syncope and collapse ?Status:?Acute ?Assessment and Plan: - 3 syncopal episodes today, 1 ENTERPRISE ARCHITECT and 2 in the ED - tele monitoring showing bradycardiac events - EKG (19:08):? Sinus rhythm with a rate of 72, nonspecific T-wave abnormality, and when compared to EKG in 2019, sinus rhythm now present and T-wave abnormality now present.? Awaiting formal read. - troponin: < 0.012 x3 - viral PCR negative for COVID, Flu, RSV - CXR: 1. Mild chronic interstitial lung disease. 2. Moderate-sized hiatal hernia. - Head CT: 1. 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 2. Extensive nonspecific cerebral white matter disease, which likely represents chronic small vessel ischemic disease. - C-Spine CT: 1. No fracture. 2. Severe cervical spondylosis. - cardiology consulted - ED spoke with Faina SEBASTIAN. Recommended the following: start dopamine gtt @5 mcg/kg/min echo in AM possible pacemaker placement - admitted to ICU, application performance engineer consulted and recommended atropine. med was held, HR remained in the 70's after event in the ED. - atropine prn for bradycardia <30 - Add TSH, continue to monitor labs (2) Symptomatic bradycardia: ?Code(s): R00.1 - Bradycardia, unspecified ?Status:?Acute ?Assessment and Plan: - see above - brief, asymptomatic episode of bradycardia after admission to ICU with lowest HR at 28 around 23:45. atropine at the bedside. dopamine gtt remains at 5 mcg/kg/min. - continue telemetry monitoring (3) HTN (hypertension): ?Code(s): I10 - Essential (primary) hypertension ?Status:?Acute ?Assessment and Plan: - chronic, currently mildly hypertensive - given HR will permit moderate amount of HTN, takes irbesartan. continue. - monitor DS: Discharge Diagnosis Discharge Diagnosis (1) Hypokalemia: Code(s): E87.6 - Hypokalemia Status: Acute (2) CVA (cerebral vascular accident): Code(s): I63.9 - Cerebral infarction, unspecified Status: Acute (3) Sick sinus syndrome: Code(s): I49.5 - Sick sinus syndrome Status: Acute (4) HTN (hypertension): Code(s): I10 - Essential (primary) hypertension Status: Acute (5) Syncope and collapse: Code(s): R55 - Syncope and collapse Status: Acute (6) Symptomatic bradycardia: Code(s): R00.1 - Bradycardia, unspecified Status: Acute DS: Summary Hospital Course Reason for hospitalization: Patient brought to the ER for evaluation for her syncopal episode Hospital Course: H&P: HPI History of Present Illness Date/Time: 09/17/23? 01:04 Chief Complaint: Syncope Narrative: 73 y/o F presented here with a syncopal event with PMH of CVA, HTN, sleep apnea, shingles, breast cancer, and anxiety. Patient presents here from home for evaluation of syncopal event.? Patient reports that she was walking to her car to go to lunch when she suddenly had a unwitnessed syncopal episode.? Unknown duration of LOC, patient believes it may have been 1-2 minutes.? Unknown if patient sustained a head strike, but denies headache or neck pain.? Patient had no prodromal symptoms, i.e. shortness of breath, palpitations, chest pain, nausea, diaphoresis.? After syncopal episode, patient did not report any confusion, diaphoresis, nausea, vomiting, diarrhea, palpitations, chest discomfort, or shortness of breath.? No focal weakness, no change in sensation, no dysarthria.? Patient denies any previous syncopal episodes.? No recent illnesses.? Per chart review, patient's sister (who was at the bedside in the ED) states the patient has been complaining of increased fatigue over the past few days.? Patient has no known cardiac history.? She is not currently on anticoagulation. Initial VS at presentation:? 98.1 F, HR 69, RR 16, 177/81, 98% on RA. ED workup showed n
== END 2023-09-18 16:04 | disposition home or self-care (01) | DRG 244 ==
LOC: ANHED 17:47 → ANHICU 20:11
PROVIDERS: Preventive Medicine Aerospace Medicine; Specialist; Student in an Organized Health Care Education/Training Program; Admitting Provider Internal Medicine; Emergency Provider Physician Assistant; PCP Family Medicine; Visit Provider Family Medicine
PROC: 0JH606Z Insertion of Pacemaker, Dual Chamber into Chest Subcutaneous Tissue and Fascia, Open Approach (ICD-10-PCS; CPT 33208; principal; 2023-09-17 10:00)
DX: I49.5 Sick sinus syndrome (principal); I69.311 Memory deficit following cerebral infarction; I95.9 Hypotension, unspecified; I10 Essential (primary) hypertension; E87.6 Hypokalemia; E78.5 Hyperlipidemia, unspecified; G47.30 Sleep apnea, unspecified; Z20.822 Contact with and (suspected) exposure to COVID-19; Z87.891 Personal history of nicotine dependence; Z85.3 Personal history of malignant neoplasm of breast; Z79.82 Long term (current) use of aspirin
CPT/HCPCS: 33208; 36415; 70450; 71045; 71046; 72125; 80048; 80053; 81001; 82550; 82948; 83605; 83735; 83880; 84100; 84439; 84443; 84480; 84484; 85025; 87637; 93005; 96365; 96366; 96375; 99285; A9270; C1779; C1785; C8929; C9113; G0378; J0360; J0461; J0690; J1265; J2250; J2405; J3010; J7030; J7040; Q9957